=== PATIENT | male | born 1955 | race Caucasian/White ===

== ENCOUNTER 2016-06-09 10:55 | Day surgery (SDC) | payer OTHER ==
[~2016-06-09] VITALS: Ht 180.3 cm; Wt 112.7 kg
[~2016-06-09 10:55] MED LIST: 0.9% Sodium Chloride 1,000 ML IV SCH; OMEP20TA24 PO; Sodium Chloride LOK Flush 10 mL Syringe IV PRN; fentaNYL-PF 50 mCg/mL 2 mL Inj IVPUSH PRN
[2016-06-09 11:55] VITALS: BP 198/116; PULSE 63; RESP 16; O2SAT 97
[2016-06-09 12:43] VITALS: BP 199/124; PULSE 64; O2SAT 96
== END 2016-06-09 23:59 | disposition home or self-care (01) ==
LOC: END 10:55
PROVIDERS: ATTEND Internal Medicine
DX: Z12.11 Encounter for screening for malignant neoplasm of colon (principal); Z53.09 Procedure and treatment not carried out because of other contraindication; R03.0 Elevated blood-pressure reading, without diagnosis of hypertension
CPT/HCPCS: 99211; G0463